=== PATIENT | male | born 1975 | race American Indian/Alaskan Native ===

== ENCOUNTER 2021-02-07 00:07 | Emergency (ER) | payer OTHER ==
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
[2021-02-07 02:49] VITALS: BP 155/107
== END 2021-02-07 02:54 | disposition home or self-care (01) ==
LOC: ED 00:07
DX: M54.9 Dorsalgia, unspecified (principal); V49.49XA Driver injured in collision with other motor vehicles in traffic accident, initial encounter; Y92.410 Unspecified street and highway as the place of occurrence of the external cause; Y93.89 Activity, other specified; Y99.8 Other external cause status
CPT/HCPCS: 99282